=== PATIENT | male | born 2000 | race Caucasian/White ===

== ENCOUNTER 2020-11-14 19:40 | Emergency (ER) | payer OTHER ==
[~2020-11-14] VITALS: Ht 180.3 cm; Wt 74.5 kg
[2020-11-14] MEDS ORDERED: SILVER NITRATE APPLICATOR 1 EA STICK TP ONE ×2 (20:17→20:30)
[2020-11-14 20:48] VITALS: BP 128/68
== END 2020-11-14 21:10 | disposition home or self-care (01) ==
LOC: EMS 19:42
DX: R04.0 Epistaxis (principal)
CPT/HCPCS: 30901; Z7502; Z7610

== ENCOUNTER 2022-02-26 20:48 | Emergency (ER) | payer OTHER ==
[~2022-02-26] VITALS: Ht 182.9 cm; Wt 72.7 kg
[2022-02-26] MEDS ORDERED: ACET325S20 PR (21:16)
[2022-02-26] MEDS ORDERED: MECL-134 PO (21:16)
[2022-02-26 21:47] LABS: BASOPHILS % (AUTO) 0.2 % (0.0-2.0); EOSINOPHILS % (AUTO) 1.9 % (1.0-6.0); HEMATOCRIT 46.7 % (41-53); HEMOGLOBIN 16.1 g/dL (13.5-17.5); LYMPHOCYTES # (AUTO) 1.7 K/uL (1.0-4.8); LYMPHOCYTES % (AUTO) 22.8 % (22.0-44.0); MEAN CORPUSCULAR HEMOGLOBIN 30.1 pg (26.0-34.0); MEAN CORPUSCULAR HGB CONC 34.6 G/dL (31.0-37.0); MEAN CORPUSCULAR VOLUME 87 fL (80-100); MONOCYTES # (AUTO) 0.6 K/uL (0.1-1.0); NEUTROPHILS # (AUTO) 4.9 K/uL (1.8-7.7); NEUTROPHILS % (AUTO) 67.1 % (40.0-70.0); PLATELET COUNT (AUTO) 178 K/uL (150-450); RED BLOOD CELL COUNT(AUTO) 5.36 MIL/uL (4.50-5.90)
[2022-02-26 22:24] LABS: ALANINE AMINOTRANSFERASE 20 U/L (12-78); ALBUMIN 4.2 g/dL (3.4-5.0); ALKALINE PHOSPHATASE 81 U/L (46-116); ASPARTATE AMINOTRANSFERASE 17 U/L (15-37); BILIRUBIN,TOTAL 0.7 mg/dL (0.1-1.0); TOTAL PROTEIN, SERUM 7.8 g/dL (6.4-8.2)
[2022-02-26 22:57] LABS: ANION GAP 7 mmol/L (8-16); CHLORIDE 103 mmol/L (98-107); POTASSIUM 3.5 mmol/L (3.5-5.1); SODIUM SERUM 140 mmol/L (136-145)
[2022-02-26 22:59] LABS: CALCIUM, TOTAL 9.6 mg/dL (8.8-10.5); CARBON DIOXIDE 30 mmol/L (22-29); CREATININE 1.04 mg/dL (0.60-1.30); GLOMERULAR FILTR. RATE CALC > 60 mL/min (>60); GLUCOSE,RANDOM 116 mg/dL (70-110); UREA NITROGEN, BLOOD 13 mg/dL (7-18)
[2022-02-26] MEDS ORDERED: CYCLOBENZAPRINE HCL 10 MG TABLET PO ONE (23:15)
[2022-02-26] MEDS ORDERED: CYCL-397 PO (23:52)
[2022-02-27 00:04] VITALS: BP 118/77
== END 2022-02-27 00:17 | disposition home or self-care (01) ==
LOC: EMS 20:59
DX: S13.4XXA Sprain of ligaments of cervical spine, initial encounter (principal); S06.0X0A Concussion without loss of consciousness, initial encounter; M62.838 Other muscle spasm; Z79.899 Other long term (current) drug therapy; W51.XXXA Accidental striking against or bumped into by another person, initial encounter; Y93.66 Activity, soccer; Y92.89 Other specified places as the place of occurrence of the external cause; Y99.8 Other external cause status
CPT/HCPCS: 80053; 85025; 99283; G0480